=== PATIENT | female | born 1970 | race American Indian/Alaskan Native ===

== ENCOUNTER 2018-10-18 09:43 | Outpatient (CLI) | payer OTHER | END 2018-10-18 09:44 | disposition home or self-care (01) | LOC: RAD 09:44 ==

== ENCOUNTER 2018-11-04 14:47 | Outpatient (CLI) | payer OTHER | END 2018-11-04 14:48 | disposition home or self-care (01) | LOC: LAB 14:47 | DX: Z00.00 Encounter for general adult medical examination without abnormal findings (principal) ==